=== PATIENT | female | born 1985 | race African-American/Black ===

== ENCOUNTER 2016-11-30 08:49 | Emergency (ER) | payer OTHER ==
[2016-11-30 09:13] VITALS: BMI 21.1
--- NOTE | 2016-11-30 10:49 | PDOC ---
History of Present Illness - General History Source: Patient Exam Limitations: No Limitations - History of Present Illness Initial Comments: 11/30/16 11:03 The patient is a 31 year old female, with no significant past medical history who presents to the emergency department with right sided flank pain, chills, body aches, weakness and fever of 102 degrees for about 3 days. Patient notes taking motrin for her fever with no significant alleviation of her symptoms. The patient ranks her pain a 9/10 in pain intensity. She denies any sore throat or runny nose. She reports mild nausea and nasal congestion. She reports feeling dehydrated and notes having foul smelling urine for the past week. LMP was last week and regular. She denies chest pain and shortness of breath. She denies headache. She denies, vomit and constipation. She denies dysuria, frequency, urgency and hematuria. Allergies: Iodine Past surgical history: None Social history:Nonsmoker. Denies EtOH and drug use. PCP: <Robbi Ladd - Last Filed: 11/30/16 11:03> - General History Source: Patient Exam Limitations: No Limitations <Jose Enrique Cox - Last Filed: 11/30/16 21:37> - General Chief Complaint: Pain, Acute Stated Complaint: RT SIDE PAIN, WEAKNESS, FEVER Time Seen by Provider: 11/30/16 10:48 Past History <Robbi Ladd - Last Filed: 11/30/16 11:03> - Past Medical History Asthma: Yes Cancer: No Cardiac Disorders: No Diabetes: No HTN: No Suicide Attempt (Hx): No Seizures: No Thyroid Disease: No - Reproductive History (#): 11 Para: 2 Therapeutic (s) & number: Yes (4) Spontaneous : 0 - Psycho/Social/Smoking Cessation Hx Anxiety: No Suicidal Ideation: No Smoking Status: No Smoking History: Never smoked Have you smoked in the past 12 months: No Number of Cigarettes Smoked Daily: 0 Hx Alcohol Use: No Drug/Substance Use Hx: No Substance Use Type: None Hx Substance Use Treatment: No <Jose Enrique Cox - Last Filed: 11/30/16 21:37> - Past Medical History Allergies/Adverse Reactions: Allergies Allergy/AdvReac Type Severity Reaction Status Date / Time iodine [Iodine] Allergy Hives Verified 11/30/16 09:06 Home Medications: Ambulatory Orders Albuterol Sulfate Inhaler - [Ventolin HFA Inhaler -] 2 sprays PO PRN PRN Levofloxacin [Levaquin] 750 mg PO DAILY #5 tablet 11/30/16 Review of Systems - Review of Systems Able to Perform ROS?: Yes Comments:: 11/30/16 11:03 CONSTITUTIONAL: Reported: fever and weakness.Chills, body aches No reported: Diaphoresis, Loss of Appetite HEENT: No reported: Rhinorrhea, Nasal Congestion, Throat Pain, Throat Swelling, Difficulty Swallowing, Mouth Swelling, Ear Pain, Eye Pain, Visual Changes CARDIOVASCULAR: No reported: Chest Pain, Syncope, Palpitations, Irregular Heart Rate, Lightheadedness, Peripheral Edema RESPIRATORY: No reported: Cough, Shortness of Breath, SOB with Exertion, Orthopnea, Wheezing , Stridor, Hemoptysis GASTROINTESTINAL: No reported: Vomiting, Diarrhea, Constipation, Melena, Hematochezia GENITOURINARY: Reported: right flank pain. No reported: Dysuria, Frequency, Urgency, Hesitancy , Genital Pain MUSCULOSKELETAL: No reported: Myalgia, Arthralgia, Joint Swelling, Back pain, Neck Pain SKIN: No reported: Rash, Itching, Pallor HEMEATOLOGIC/IMMUNOLOGIC: No reported: Easy Bleeding, Easy Bruising, Lymphadenopathy, Frequent infections ENDOCRINE: No reported: Unexplained Weight Gain, Unexplained Weight Loss, Heat Intolerance , Cold Intolerance NEUROLOGIC: No reported: Headache, Focal Weakness, Paresthesias, Vertigo, Lightheadedness, Unsteady Gait, Seizure, Mental Status Changes, Incontinence PSYCHIATRIC: No reported: Anxiety, Depression <Robbi Ladd - Last Filed: 11/30/16 11:03> *Physical Exam - Vital Signs Last Vital Signs Temp Pulse Resp BP Pulse Ox 101.4 F H 114 H 18 93/57 96 11/30/16 09:07 11/30/16 09:07 11/30/16 09:07 11/30/16 09:07 11/30/16 09:07 - Physical Exam Comments: 11/30/16 11:03 GENERAL: The patient is awake, alert, and fully oriented, Nontoxic. HEAD: Normocephalic, atraumatic. EYES: extraocular movements intact, sclera anicteric, conjunctiva clear. ENT: Normal voice, Moist mucous membranes. NECK: Normal range of motion, supple LUNGS: Breath sounds equal, clear to auscultation bilaterally. No wheezes, no rhonchi, no rales. HEART: Regular rate and rhythm, without murmur, rub or gallop. ABDOMEN: Mild right CVA tenderness and mild right abdominal tenderness. Soft, normoactive bowel sounds. No guarding, no rebound.No CVA tenderness EXTREMITIES: Normal range of motion, no edema. No clubbing or cyanosis. No cords , erythema, or tenderness. NEUROLOGICAL: No facial asymmetry, Normal speech. PSYCH: Normal mood, normal affect. SKIN: Warm, Dry, normal turgor. <Robbi Ladd - Last Filed: 11/30/16 11:03> - Vital Signs Last Vital Signs Temp Pulse Resp BP Pulse Ox 101.4 F H 114 H 18 93/57 96 11/30/16 09:07 11/30/16 09:07 11/30/16 09:07 11/30/16 09:07 11/30/16 09:07 <Jose Enrique Cox - Last Filed: 11/30/16 21:37> ED Treatment Course - LABORATORY CBC & Chemistry Diagram: 11/30/16 11:11 11/30/16 11:11 <Jose Enrique Cox - Last Filed: 11/30/16 21:37> Medical Decision Making - Medical Decision Making 11/30/16 10:59 31y F no pmhx presents with R sided abd pain, fever/chills, body aches, foul smelling urine. On exam pt noted with r sided flank tenderness, noted febrile and tachycardic - suspect possible pyelonephritis will ck ua, cbc, cmp will give fluids, zofran, small dose of morphine will r/o A portion of this note was documented by scribe services under my direction. I have reviewed the details of the note, within reason, and agree with the documentation with the following case summary and management plan written by me 11/30/16 14:06 lbs reviewed noted for leukocytosis ua c/w ua - likely pyelo pt given dose of levaquin pt feeling improved will d/c pt to fu with her PMD return precuations were discussed I discussed the physical exam findings, ancillary test results and final diagnoses with the patient. I answered all of the patient's questions. The patient was satisfied with the care received and felt comfortable with the discharge plan and treatment plan. The patient will call their primary care physician within 24 hours to arrange follow-up and will return to the Emergency Department with any new, persistent or worsening symptoms. <Jose Enrique Cox - Last Filed: 11/30/16 21:37> *DC/Admit/Observation/Transfer - Attestations Scribe Attestion: 11/30/16 11:00 Documentation prepared by Robbi Ladd, acting as medical transport specialist for Jose Enrique Cox MD. <Robbi Ladd - Last Filed: 11/30/16 11:03> - Discharge Dispostion Admit: No <Jose Enrique Cox - Last Filed: 11/30/16 21:37> Diagnosis at time of Disposition: Pyelonephritis - Discharge Dispostion Disposition: HOME Condition at time of disposition: Improved - Prescriptions Prescriptions: Levofloxacin [Levaquin] 750 mg PO DAILY #5 tablet - Referrals Referrals: Donell Hector MD [Primary Care Provider] - - Patient Instructions Printed Discharge Instructions: DI for Kidney Infection Additional Instructions: Return to the emergency department immediately with ANY new, persistent or worsening symptoms including persistent fevers, worsening back pain, inability to tolerate oral intake or other concerns. You MUST call and follow up with your doctor tomorrow for further evaluation of your symptoms. Results were discussed with you. Please make sure your doctor reviews the results of your emergency evaluation. Print Language: SLOVENIAN - Post Discharge Activity Work/School Note: Back to Work
[2016-11-30] MEDS ORDERED: SODIUM CHLORIDE 1,000 ML IV ONE ×2 (10:58→13:22)
[2016-11-30] MEDS ORDERED: ONDANSETRON 4 MG/2 ML VIAL IVPB ONE (10:58)
[2016-11-30] MEDS ORDERED: ACETAMINOPHEN 500 MG TABLET (FP) PO ONE (11:13)
[2016-11-30] MEDS ORDERED: ACETAMINOPHEN 325 MG TABLET (FP) ONE (11:17)
[2016-11-30] MEDS ORDERED: ONDANSETRON 4 MG/2 ML VIAL ONE (11:17)
[2016-11-30 11:22] LABS: BASOPHIL 0.4 % (0-2.0); MCH 30.1 pg (25.7-33.7); MCHC 33.2 g/dl (32.0-36.0); MEAN CELL VOLUME 90.8 fl (80-96); MEAN PLT VOLUME 9.1 fl (7.5-11.1); NEUTROPHILS 79.8 % (42.8-82.8); PLATELET COUNT 194 K/MM3 (134-434); RDW 13.6 % (11.6-15.6)
[2016-11-30 11:29] LABS: URINE APPEARANCE SLCLOUDY; URINE BILIRUBIN NEGATIVE (NEGATIVE); URINE BLOOD NEGATIVE (NEGATIVE); URINE COLOR DKYELLOW; URINE GLUCOSE (UA) NEGATIVE (NEGATIVE); URINE KETONE 1+ (NEGATIVE); URINE LEUK ESTERASE NEGATIVE (NEGATIVE); URINE NITRITE POSITIVE (NEGATIVE); URINE UROBILINOGEN NEGATIVE E.U./dl (0.2-1.0)
[2016-11-30 11:32] LABS: URINE PROTEIN 1+ (NEGATIVE)
[2016-11-30 11:34] LABS: URINE BACTERIA MANY /hpf (NONE SEEN); URINE MUCUS MANY; URINE RBC 4 /hpf (0-3); URINE WBC 9 /hpf (3-5)
[2016-11-30 11:36] LABS: ALBUMIN 4.2 g/dl (3.4-5.0); ALK PHOS 62 U/L (45-117); ANION GAP 8 (8-16); BILIRUBIN,TOTAL 1.1 mg/dL (0.2-1.0); CO2 27 mmol/L (21-32); CREATININE 0.9 mg/dL (0.55-1.02); GLUCOSE,RANDOM 95 mg/dL (74-106); SGOT/AST 10 U/L (15-37); SGPT/ALT 16 U/L (12-78); TOT PROT 8.2 g/dl (6.4-8.2)
[2016-11-30] MEDS ORDERED: LEVOFLOXACIN 750 MG IVPB 150 ML IVPB ONE (12:38)
[2016-11-30] MEDS ORDERED: KETOROLAC TROMETHAMINE 30 MG/1 ML VIAL IVPUSH ONE (12:39)
[2016-11-30] MEDS ORDERED: KETOROLAC TROMETHAMINE 30 MG/1 ML VIAL ONE (13:06)
[2016-11-30] MEDS ORDERED: LEVOFLOXACIN 250 MG IVPB 50 ML IVPB ONE (13:07)
[2016-11-30] MEDS ORDERED: LEVOFLOXACIN 500 MG IVPB 100 ML IVPB ONE (13:07)
[2016-11-30 13:25] VITALS: BP 112/59; PULSE 93; TEMP 98.4
[2016-11-30] MEDS ORDERED: POTASSIUM CHLORIDE TABS 20 MEQ TABLET.ER (FP) PO ONE ×2 (14:08→14:16)
== END 2016-11-30 14:44 | disposition home or self-care (01) ==
LOC: JER 08:49
PROC: 3E03329 Introduction of Other Anti-infective into Peripheral Vein, Percutaneous Approach (ICD-10-PCS; principal; 2016-11-30)
PROC: 3E033GC Introduction of Other Therapeutic Substance into Peripheral Vein, Percutaneous Approach (ICD-10-PCS; 2016-11-30)
PROC: 3E0337Z Introduction of Electrolytic and Water Balance Substance into Peripheral Vein, Percutaneous Approach (ICD-10-PCS; 2016-11-30)
DX: N12 Tubulo-interstitial nephritis, not specified as acute or chronic (principal)
CPT/HCPCS: 36415; 80053; 81003; 81015; 84703; 85025; 87086; 87186; 99284-25

== ENCOUNTER 2017-09-22 13:45 | Emergency (ER) | payer OTHER ==
[2017-09-22 13:53] VITALS: BP 108/57; PULSE 96; TEMP 98.8; BMI 21.1
[2017-09-22] MEDS ORDERED: FAMOTIDINE 20 MG TABLET PO ONE (14:04)
--- NOTE | 2017-09-22 14:04 | PDOC ---
History of Present Illness - General Chief Complaint: Allergic Reaction Stated Complaint: ALLERGIC REACTION Time Seen by Provider: 09/22/17 14:02 - History of Present Illness Initial Comments: 09/22/17 14:20 Chief complaint: ALLERGIC reaction History of present illness: After eating fish that was supposedly prepared with iodine salt, the patient experienced itching without hives, irritation and the sensation of swelling in her throat, and chest tightness with wheezing. She has had similar reactions in the past to iodine in radiological contrast procedure and also foods. She is prescribed an EpiPen but did not have it with her today. She took 2 Benadryl by mouth, used an albuterol pump, and took an albuterol nebulizer treatment. Her symptoms gradually subsided. At present, she has only mild irritation in the throat. There was never any stridor or shortness of breath. Review of systems: Denies fever/chills, chest pain, shortness of breath, abdominal pain, nausea, vomiting, diarrhea, urinary tract symptoms, vaginal bleeding or discharge. Her last menses was 2 months ago. She is usually regular. She is not sexually active Past medical history: Asthma since childhood, ALLERGIC reactions with urticaria as noted above. 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, no tobacco alcohol or nonprescription drugs, fully active and without disability Family history: Reviewed and negative including ALLERGIC diseases, skin diseases , early coronary artery disease, metabolic diseases including diabetes, and cancer Physical exam: Alert and oriented well-developed well-nourished no acute distress cheerful and cooperative complaining only of slight irritation in the throat Afebrile, vital signs normal with normal respiratory rate and oxygen saturation PERRLA, fundi benign, ENT clear, with only slight edema of the uvula and no other edema or swelling of the oropharynx, lips, or face Neck supple without bruit mass or nodes Chest clear with full breath sounds throughout bilaterally, no wheezes rales or rhonchi CV S1 and S2 normal without murmur rub or gallop pulses full and symmetric no JVD or edema Abdomen nondistended, normal bowel sounds. Soft without mass tenderness or organomegaly Neurological C2 to 12 intact. Strength full and symmetric. No focal sensory or motor deficits. Gait stable and unimpaired Skin clear, no rash including urticaria, good turgor and wet mucous membranes Extremities no CCE Impression: ALLERGIC reaction, partially treated with Benadryl, resolving. Plan: Continued treatment and observation. Past History - Past Medical History Allergies/Adverse Reactions: Allergies Allergy/AdvReac Type Severity Reaction Status Date / Time iodine [Iodine] Allergy Hives Verified 11/30/16 09:06 Home Medications: Ambulatory Orders Albuterol Sulfate Inhaler - [Ventolin HFA Inhaler -] 2 sprays PO PRN PRN Albuterol 0.083% Nebulizer Oly [Ventolin 0.083%] 1 neb NEB QID PRN 09/22/17 Asthma: Yes Cancer: No Cardiac Disorders: No Diabetes: No HTN: No Seizures: No Thyroid Disease: No - Reproductive History (#): 11 Para: 2 Therapeutic (s) & number: Yes (4) Spontaneous : 0 - Suicide/Smoking/Psychosocial Hx Smoking Status: No Smoking History: Never smoked Have you smoked in the past 12 months: No Number of Cigarettes Smoked Daily: 0 Hx Alcohol Use: No Drug/Substance Use Hx: No Substance Use Type: None Hx Substance Use Treatment: No *Physical Exam - Vital Signs Last Vital Signs Temp Pulse Resp BP Pulse Ox 98.8 F 96 H 18 108/57 100 09/22/17 13:45 09/22/17 13:45 09/22/17 13:45 09/22/17 13:45 09/22/17 13:45 Medical Decision Making - Medical Decision Making 09/22/17 14:42 Symptoms have completely resolved. The throat is clear. Edema of the uvula is no longer evident. Lungs are clear with full breath sounds bilaterally. Abdomen is soft and nontender. There is no itching and there are no urticaria visible or palpable EpiPen is refilled and its use was reviewed with the patient. She has Benadryl and albuterol at home. She will follow up with her primary physician. Return to the hospital immediately if there are any further symptoms. *DC/Admit/Observation/Transfer Diagnosis at time of Disposition: Allergic reaction Qualifiers: Encounter type: initial encounter Qualified Code(s): T78.40XA - Allergy, unspecified, initial encounter; T78.40XA - Allergy, unspecified, initial encounter - Discharge Dispostion Disposition: HOME Condition at time of disposition: Improved Admit: No - Patient Instructions Printed Discharge Instructions: DI for Adverse Drug Reaction -- Allergic - Post Discharge Activity Forms/Work/School Notes: Back to Work
[2017-09-22] MEDS ORDERED: FAMOTIDINE 20 MG TABLET ONE (14:06)
== END 2017-09-22 15:12 | disposition home or self-care (01) ==
LOC: FER 13:45
PROC: 3E023GC Introduction of Other Therapeutic Substance into Muscle, Percutaneous Approach (ICD-10-PCS; principal; 2017-09-22)
DX: T78.40XA Allergy, unspecified, initial encounter (principal); X58.XXXA Exposure to other specified factors, initial encounter; Y93.9 Activity, unspecified; Y92.9 Unspecified place or not applicable
CPT/HCPCS: 99283-25

== ENCOUNTER 2017-11-28 17:53 | Emergency (ER) | payer OTHER ==
[2017-11-28 18:16] VITALS: BMI 22.4
[2017-11-28] MEDS ORDERED: SODIUM CHLORIDE 1,000 ML IV STA (18:16)
--- NOTE | 2017-11-28 18:16 | PDOC ---
Rapid Medical Evaluation Medical Evaluation: Allergies Allergy/AdvReac Type Severity Reaction Status Date / Time iodine [Iodine] Allergy Hives Verified 11/30/16 09:06 11/28/17 18:12 I have performed a brief in-person evaluation of this patient. The patient presents with a chief complaint of: N/v and syncope s/p eating a "weed" brownie 1/2 hr ago, provided by a friend. Also c/o anxiety and SI Pertinent physical exam findings:appears uncomfortable and actively vomiting at triage w/ tachycardia to 130 I have ordered the following:cbc/chem/ua/utox/IVF/zofran The patient will proceed to the ED for further evaluation. 11/28/17 18:17
[2017-11-28] MEDS ORDERED: ONDANSETRON 4 MG/2 ML VIAL IVPUSH ONE (18:17)
[2017-11-28] MEDS ORDERED: ONDANSETRON 4 MG/2 ML VIAL ONE (18:33)
[2017-11-28 18:48] LABS: BASO % 0.4 % (0-2.0); EOS % 0.6 % (0-4.5); HEMATOCRIT 36.3 % (32.4-45.2); HEMOGLOBIN 12.2 GM/dL (10.7-15.3); LYMPH % 52.7 % (8-40); MCH 30.2 pg (25.7-33.7); MCHC 33.7 g/dl (32.0-36.0); MEAN CELL VOLUME 89.5 fl (80-96); MEAN PLT VOLUME 8.5 fl (7.5-11.1); MONO % 5.8 % (3.8-10.2); NEUT % 40.5 % (42.8-82.8); PLATELET COUNT 226 K/MM3 (134-434); RBC 4.06 M/mm3 (3.60-5.2); RDW 13.8 % (11.6-15.6); WHITE BLOOD COUNT 7.4 K/mm3 (4.0-10.0)
[2017-11-28 19:04] LABS: URINE APPEARANCE SLCLOUDY; URINE BILIRUBIN NEGATIVE (NEGATIVE); URINE BLOOD NEGATIVE (NEGATIVE); URINE COLOR YELLOW; URINE GLUCOSE (UA) NEGATIVE (NEGATIVE); URINE KETONE NEGATIVE (NEGATIVE); URINE LEUK ESTERASE NEGATIVE (NEGATIVE); URINE NITRITE NEGATIVE (NEGATIVE); URINE PROTEIN NEGATIVE (NEGATIVE); URINE UROBILINOGEN NEGATIVE mg/dL (0.2-1.0)
[2017-11-28 19:30] LABS: COCAINE, UR NEGATIVE ng/ml (CUTOFF=300); METHADONE, UR NEGATIVE ng/ml (CUTOFF=300); OPIATES, URI NEGATIVE ng/ml (CUTOFF=300); PHENCYCLIDINE,URINE NEGATIVE ng/ml (CUTOFF=25); URINE AMPHETAMINES NEGATIVE ng/ml (CUTOFF=500); URINE BARBITURATES NEGATIVE ng/ml (CUTOFF=200); URINE BENZODIAZEPINES NEGATIVE ng/ml (CUTOFF=200)
[2017-11-28 20:03] LABS: ALBUMIN 3.4 g/dl (3.4-5.0); ANION GAP 6 (8-16); BLOOD UREA NITROGEN 14 mg/dL (7-18); CALCIUM 7.5 mg/dL (8.5-10.1); CHLORIDE 112 mmol/L (98-107); CO2 24 mmol/L (21-32); GLUCOSE,RANDOM 104 mg/dL (74-106); POTASSIUM 3.6 mmol/L (3.5-5.1); SODIUM 142 mmol/L (136-145)
[2017-11-28 20:07] LABS: ALK PHOS 39 U/L (45-117); BILIRUBIN,TOTAL 0.5 mg/dL (0.2-1.0); CREATININE 0.6 mg/dL (0.55-1.02); SGOT/AST 9 U/L (15-37); SGPT/ALT 16 U/L (12-78); TOT PROT 6.3 g/dl (6.4-8.2)
--- NOTE | 2017-11-28 20:29 | PDOC ---
History of Present Illness <Cammie Currie Jihan - Last Filed: 11/28/17 23:26> - General History Source: Patient Exam Limitations: No Limitations - History of Present Illness Initial Comments: 11/28/17 23:43 The patient is a 32 year old female with no significant past medical history who presents to the ED complaining of nausea, vomiting, and lightheadedness that began approximately half an hour eating a "weed brownie". She states her mother gave her the brownie. She denies any other illicit drug use. She felt anxious and came to the ED. No abdominal pain, constipation, or diarrhea. No fever or chills. <Betina Cummins - Last Filed: 11/28/17 23:55> - General Chief Complaint: Psychiatric Stated Complaint: SUBSTANCE ABUSE Time Seen by Provider: 11/28/17 19:13 Past History - Past Medical History Asthma: Yes Cancer: No Cardiac Disorders: No COPD: No Diabetes: No HTN: No Seizures: No Thyroid Disease: No - Reproductive History (#): 11 Para: 2 Therapeutic (s) & number: Yes (4) Spontaneous : 0 - Suicide/Smoking/Psychosocial Hx Smoking Status: No Smoking History: Never smoked Have you smoked in the past 12 months: No Number of Cigarettes Smoked Daily: 0 Information on smoking cessation initiated: No Hx Alcohol Use: No Drug/Substance Use Hx: No Substance Use Type: None Hx Substance Use Treatment: No <Cammie Currie Jihan - Last Filed: 11/28/17 23:26> <Betina Cummins - Last Filed: 11/28/17 23:55> - Past Medical History Allergies/Adverse Reactions: Allergies Allergy/AdvReac Type Severity Reaction Status Date / Time iodine [Iodine] Allergy Hives Verified 11/28/17 18:17 Home Medications: Ambulatory Orders Albuterol Sulfate Inhaler - [Ventolin HFA Inhaler -] 2 sprays PO PRN PRN Albuterol 0.083% Nebulizer Oly [Ventolin 0.083% Nebulizer Soln -] 1 neb NEB QID PRN 09/22/17 Epinephrine [Epipen] 0.3 mg IJ PRN PRN #1 auto.injct 09/22/17 Review of Systems - Review of Systems Able to Perform ROS?: Yes Comments:: 11/28/17 23:45 CONSTITUTIONAL: Absent: fever, chills, diaphoresis, generalized weakness, malaise, loss of appetite HEENT: Absent: rhinorrhea, nasal congestion, throat pain, throat swelling, difficulty swallowing, mouth swelling, ear pain, eye pain, visual Changes CARDIOVASCULAR: Absent: chest pain, syncope, palpitations, irregular heart rate, lightheadedness , peripheral edema RESPIRATORY: Absent: cough, shortness of breath, dyspnea with exertion, orthopnea, wheezing, stridor, hemoptysis GASTROINTESTINAL: Present: nausea, vomiting Absent: abdominal pain, abdominal distension, diarrhea, constipation, melena, hematochezia GENITOURINARY: Absent: dysuria, frequency, urgency, hesitancy, hematuria, flank pain, genital pain MUSCULOSKELETAL: Absent: myalgia, arthralgia, joint swelling SKIN: Absent: rash, itching, pallor HEMATOLOGIC/IMMUNOLOGIC: Absent: easy bleeding, easy bruising, lymphadenopathy, frequent infections ENDOCRINE: Absent: unexplained weight gain, unexplained weight loss, heat intolerance, cold intolerance NEUROLOGIC: Absent: headache, focal weakness or paresthesias, dizziness, unsteady gait, seizure, mental status changes, bladder or bowel incontinence PSYCHIATRIC: Present: anxiety Absent: depression, suicidal or homicidal ideation, hallucinations. <Betina Cummins - Last Filed: 11/28/17 23:55> *Physical Exam - Vital Signs Last Vital Signs Temp Pulse Resp BP Pulse Ox 97.6 F 130 H 22 122/68 100 11/28/17 18:12 11/28/17 18:12 11/28/17 18:12 11/28/17 18:12 11/28/17 18:12 <Cammie Currie - Last Filed: 11/28/17 23:26> - Vital Signs Last Vital Signs Temp Pulse Resp BP Pulse Ox 97.6 F 130 H 22 122/68 100 11/28/17 18:12 11/28/17 18:12 11/28/17 18:12 11/28/17 18:12 11/28/17 18:12 - Physical Exam Comments: 11/28/17 23:53 GENERAL: Well developed, well nourished. Awake and alert. No acute distress. HEENT: Normocephalic, atraumatic. PERRLA, EOMI. No conjunctival pallor. Sclera are non- icteric. Moist mucous membranes. Oropharynx is clear. NECK: Supple. Full ROM. No JVD. Carotid pulses 2+ and symmetric, without bruits. No thyromegaly. No lymphadenopathy. CARDIOVASCULAR: Regular rate and rhythm. No murmurs, rubs, or gallops. Distal pulses are 2+ and symmetric. PULMONARY: No evidence of respiratory distress. Lungs clear to auscultation bilaterally. No wheezing, rales or rhonchi. ABDOMINAL: Soft. Non-tender. Non-distended. No rebound or guarding. No organomegaly. Normoactive bowel sounds. MUSCULOSKELETAL Normal range of motion at all joints. No bony deformities or tenderness. No CVA tenderness. EXTREMITIES: No cyanosis. No clubbing. No edema. No calf tenderness. SKIN: Warm and dry. Normal capillary refill. No rashes. No jaundice. NEUROLOGICAL: Alert, awake, appropriate. Cranial nerves 2-12 intact. No deficits to light touch and temperature in face, upper extremities and lower extremities. No motor deficits in the in face, upper extremities and lower extremities. Normoreflexic in the upper and lower extremities. Normal speech. Gait is normal without ataxia. PSYCHIATRIC: Cooperative. Good eye contact. Appropriate mood and affect. <Betina Cummins - Last Filed: 11/28/17 23:55> Heart Score/ECG Review #1 11/28/17 21:28 EKG obtained 20:44. Normal sinus rhythm at 99 bpm. Possible left atrial enlargement. Prolonged QT Abnormal EKG. <Betina Cummins - Last Filed: 11/28/17 23:55> ED Treatment Course - LABORATORY CBC & Chemistry Diagram: 11/28/17 18:40 11/28/17 19:20 - ADDITIONAL ORDERS Additional order review: Laboratory Results 11/28/17 11/28/17 11/28/17 19:20 19:20 18:50 Sodium 142 Potassium 3.6 Chloride 112 H D Carbon Dioxide 24 Anion Gap 6 L BUN 14 D Creatinine 0.6 D Creat Clearance w eGFR > 60 Random Glucose 104 Calcium 7.5 L Total Bilirubin 0.5 D AST 9 L ALT 16 Alkaline Phosphatase 39 L D Creatine Kinase 304 H Creatine Kinase Index 0.3 CK-MB (CK-2) < 1.000 Troponin I < 0.02 Total Protein 6.3 L D Albumin 3.4 Urine Color Urine Appearance Urine pH Ur Specific [place] Urine Protein Urine Glucose (UA) Urine Ketones Urine Blood Urine Nitrite Urine Bilirubin Urine Urobilinogen Opiates Screen Negative Methadone Screen Negative Barbiturate Screen Negative Phencyclidine Screen Negative Ur Amphetamines Screen Negative MDMA (Ecstasy) Screen Negative Benzodiazepines Screen Negative Cocaine Screen Negative U Marijuana (THC) Screen Positive 11/28/17 11/28/17 18:50 18:40 Sodium Cancelled Potassium Cancelled Chloride Cancelled Carbon Dioxide Cancelled Anion Gap Cancelled BUN Cancelled Creatinine Cancelled Creat Clearance w eGFR Cancelled Random Glucose Cancelled Calcium Cancelled Total Bilirubin Cancelled AST Cancelled ALT Cancelled Alkaline Phosphatase Cancelled Creatine Kinase Cancelled Creatine Kinase Index CK-MB (CK-2) Troponin I Cancelled Total Protein Cancelled Albumin Cancelled Urine Color Yellow Urine Appearance Slcloudy Urine pH 5.0 Ur Specific [place] 1.024 Urine Protein Negative Urine Glucose (UA) Negative Urine Ketones Negative Urine Blood Negative Urine Nitrite Negative Urine Bilirubin Negative Urine Urobilinogen Negative Opiates Screen Methadone Screen Barbiturate Screen Phencyclidine Screen Ur Amphetamines Screen MDMA (Ecstasy) Screen Benzodiazepines Screen Cocaine Screen U Marijuana (THC) Screen 11/28/17 18:40 RBC 4.06 MCV 89.5 MCHC 33.7 RDW 13.8 MPV 8.5 Neutrophils % 40.5 L D Lymphocytes % 52.7 H D Monocytes % 5.8 Eosinophils % 0.6 D Basophils % 0.4 - Medications Given in the ED: ED Medications Discontinued Medications Generic Name Dose Route Start Last Admin Trade Name Freq PRN Reason Stop Dose Admin Sodium Chloride 1,000 mls @ 1,000 mls/hr 11/28/17 18:16 11/28/17 18:51 Normal Saline - IV 11/28/17 19:15 1,000 mls/hr ASDIR STA Administration Ondansetron HCl 4 mg 11/28/17 18:17 11/28/17 18:42 Zofran Injection IVPUSH 11/28/17 18:18 4 mg ONCE ONE Administration <Cammie Currie - Last Filed: 11/28/17 23:26> - LABORATORY CBC & Chemistry Diagram: 11/28/17 18:40 11/28/17 19:20 - ADDITIONAL ORDERS Additional order review: Laboratory Results 01/12/1511/28/17 11/28/17 19:20 19:20 18:50 Sodium 142 Potassium 3.6 Chloride 112 H D Carbon Dioxide 24 Anion Gap 6 L BUN 14 D Creatinine 0.6 D Creat Clearance w eGFR > 60 Random Glucose 104 Calcium 7.5 L Total Bilirubin 0.5 D AST 9 L ALT 16 Alkaline Phosphatase 39 L D Creatine Kinase 304 H Creatine Kinase Index 0.3 CK-MB (CK-2) < 1.000 Troponin I < 0.02 Total Protein 6.3 L D Albumin 3.4 Urine Color Urine Appearance Urine pH Ur Specific [place] Urine Protein Urine Glucose (UA) Urine Ketones Urine Blood Urine Nitrite Urine Bilirubin Urine Urobilinogen Opiates Screen Negative Methadone Screen Negative Barbiturate Screen Negative Phencyclidine Screen Negative Ur Amphetamines Screen Negative MDMA (Ecstasy) Screen Negative Benzodiazepines Screen Negative Cocaine Screen Negative U Marijuana (THC) Screen Positive 11/28/17 11/28/17 18:50 18:40 Sodium Cancelled Potassium Cancelled Chloride Cancelled Carbon Dioxide Cancelled Anion Gap Cancelled BUN Cancelled Creatinine Cancelled Creat Clearance w eGFR Cancelled Random Glucose Cancelled Calcium Cancelled Total Bilirubin Cancelled AST Cancelled ALT Cancelled Alkaline Phosphatase Cancelled Creatine Kinase Cancelled Creatine Kinase Index CK-MB (CK-2) Troponin I Cancelled Total Protein Cancelled Albumin Cancelled Urine Color Yellow Urine Appearance Slcloudy Urine pH 5.0 Ur Specific [place] 1.024 Urine Protein Negative Urine Glucose (UA) Negative Urine Ketones Negative Urine Blood Negative Urine Nitrite Negative Urine Bilirubin Negative Urine Urobilinogen Negative Opiates Screen Methadone Screen Barbiturate Screen Phencyclidine Screen Ur Amphetamines Screen MDMA (Ecstasy) Screen Benzodiazepines Screen Cocaine Screen U Marijuana (THC) Screen 11/28/17 18:40 RBC 4.06 MCV 89.5 MCHC 33.7 RDW 13.8 MPV 8.5 Neutrophils % 40.5 L D Lymphocytes % 52.7 H D Monocytes % 5.8 Eosinophils % 0.6 D Basophils % 0.4 - Medications Given in the ED: ED Medications Discontinued Medications Generic Name Dose Route Start Last Admin Trade Name Freq PRN Reason Stop Dose Admin Sodium Chloride 1,000 mls @ 1,000 mls/hr 11/28/17 18:16 11/28/17 18:51 Normal Saline - IV 11/28/17 19:15 1,000 mls/hr ASDIR STA Administration Ondansetron HCl 4 mg 11/28/17 18:17 11/28/17 18:42 Zofran Injection IVPUSH 11/28/17 18:18 4 mg ONCE ONE Administration <Betina Cummins - Last Filed: 11/28/17 23:55> *DC/Admit/Observation/Transfer <Cammie Currie - Last Filed: 11/28/17 23:26> - Attestations Scribe Attestion: 11/28/17 23:55 Documentation prepared by Betina Cummins, acting as medical translator for Cammie Currie MD. <Betina Cummins - Last Filed: 11/28/17 23:55> Diagnosis at time of Disposition: Drug action, Tachycardia - Discharge Dispostion Disposition: HOME Condition at time of disposition: Stable - Referrals Referrals: Donell Hector MD [Primary Care Provider] - - Patient Instructions Printed Discharge Instructions: DI for Palpitations Additional Instructions: please avoid similar foods - Post Discharge Activity
[2017-11-28 23:40] VITALS: BP 112/68; PULSE 89; TEMP 98.5
--- NOTE | 2017-11-30 13:21 | EKG ---
Test Reason : Blood Pressure : / mmHG Vent. Rate : 099 BPM Atrial Rate : 099 BPM P-R Int : 122 ms QRS Dur : 090 ms QT Int : 378 ms P-R-T Axes : 076 085 049 degrees QTc Int : 485 ms NORMAL SINUS RHYTHM POSSIBLE LEFT ATRIAL ENLARGEMENT PROLONGED QT ABNORMAL ECG WHEN COMPARED WITH ECG OF 12-JUN-2011 19:29, NO SIGNIFICANT CHANGE WAS FOUND Confirmed by ANTHONY TOMAS MD ([id number]) on 11/30/2017 1:20:57 PM Referred By: Confirmed By:ANTHONY TOMAS MD
== END 2017-11-28 23:40 | disposition home or self-care (01) ==
LOC: JER 17:53
PROC: 3E0337Z Introduction of Electrolytic and Water Balance Substance into Peripheral Vein, Percutaneous Approach (ICD-10-PCS; principal; 2017-11-28)
PROC: 3E033GC Introduction of Other Therapeutic Substance into Peripheral Vein, Percutaneous Approach (ICD-10-PCS; 2017-11-28)
DX: T40.7X1A Poisoning by cannabis (derivatives), accidental (unintentional), initial encounter (principal); R11.2 Nausea with vomiting, unspecified; Y92.038 Other place in apartment as the place of occurrence of the external cause; F41.9 Anxiety disorder, unspecified
CPT/HCPCS: 36415; 80053; 80307; 81003; 82550; 82553; 84484; 85025; 93005; 93010; 99283-25

== ENCOUNTER 2018-02-22 08:12 | Emergency (ER) | payer OTHER ==
[2018-02-22 08:22] VITALS: BP 105/61; PULSE 86; TEMP 98.5; BMI 22.6
[2018-02-22] MEDS ORDERED: ALBUTEROL SO4 2.5/IPRATROPIUM 0.5 INH SOL 3 ML VIAL.NEB. NEB ONE ×2 (08:47→09:01)
--- NOTE | 2018-02-22 09:10 | PDOC ---
History of Present Illness - General Chief Complaint: Cold Symptoms Stated Complaint: Cold symptoms, sore throat, body aches Time Seen by Provider: 02/22/18 08:27 History Source: Patient, Parent(s) Exam Limitations: No Limitations - History of Present Illness Initial Comments: 02/22/18 09:01 She came for evaluation of body aches, fevers Tmax 101, runny nose, moist cough and headache pain. States is primarily frontal. States all of children had same illness a few days ago and were told was a cold. Has used [id number] medications and albuterol at home with minimal resolved Timing/Duration: reports: getting worse Severity: reports: mild, moderate Associated Symptoms: reports: chest pain/soreness, cough, dizziness, facial pain , fever/chills, headache, nasal drainage, sore throat, wheezing Past History - Travel Traveled outside of the country in the last 30 days: No Close contact w/someone who was outside of country & ill: No - Past Medical History Allergies/Adverse Reactions: Allergies Allergy/AdvReac Type Severity Reaction Status Date / Time iodine [Iodine] Allergy Hives Verified 02/22/18 08:21 Home Medications: Ambulatory Orders NK [No Known Home Medication] 02/22/18 Asthma: Yes Cancer: No Cardiac Disorders: No COPD: No Diabetes: No HTN: No Seizures: No Thyroid Disease: No - Reproductive History (#): 11 Para: 2 Therapeutic (s) & number: Yes (4) Spontaneous : 0 - Suicide/Smoking/Psychosocial Hx Smoking Status: No Smoking History: Never smoked Have you smoked in the past 12 months: No Number of Cigarettes Smoked Daily: 0 Information on smoking cessation initiated: No Hx Alcohol Use: No Drug/Substance Use Hx: No Substance Use Type: None Hx Substance Use Treatment: No Review of Systems - Review of Systems Able to Perform ROS?: Yes Is the patient limited R[place] proficient: Yes Constitutional: Yes: Symptoms Reported, See HPI, Chills, Fever, Malaise, Weakness HEENTM: Yes: Symptoms Reported, See HPI, Nose Congestion, Difficulty Swallowing Respiratory: Yes: Symptoms reported, See HPI, Cough, Wheezing Musculoskeletal: Yes: Symptoms Reported, See HPI, Back Pain All Other Systems: Reviewed and Negative *Physical Exam - Vital Signs Last Vital Signs Temp Pulse Resp BP Pulse Ox 98.5 F 86 18 105/61 100 02/22/18 08:19 02/22/18 08:19 02/22/18 08:19 02/22/18 08:19 02/22/18 08:19 - Physical Exam Comments: 02/22/18 09:03 GENERAL: [The child is awake, alert, and appropriately interactive.] EYES: [The pupils are equal, round, and reactive to light, with clear, conjunctiva.but glassy, has frontal ethmoid and maxillary sinus tenderness and fullness] NOSE: [The nose with clear drainage EARS: [The ear canals and tympanic membranes are congested but landmarks easily visualed ] THROAT: [The oropharynx is clear with erythema, no exudates. The mucous membranes are moist.] NECK: [The neck is supple with mildly tender adenopathy, no menigemous] CHEST: [The lungs are coarse but clear without crackles, or wheezes.] HEART: [Heart is regular rhythm, with normal S1 and S2, no murmurs.] ABDOMEN: [The abdomen is soft and nontender with normal bowel sounds. There is no organomegaly and no mass. There is no guarding or rebound.] EXTREMITIES: [Extremities are normal.] NEURO: [Behavior is normal for age.cranky but easily,m Tone is normal.] SKIN: [Skin is unremarkable without rash or swelling. There is no bruising, and there are no other signs of injury.] General Appearance: Yes: Nourished, Appropriately Dressed, Apparent Distress HEENT: positive: EOMI, KARLEY, Nasal Congestion, Rhinorrhea, Sinus Tenderness. negative: TMs Normal Neck: positive: Supple, Lymphadenopathy (R), Lymphadenopathy (L) Respiratory/Chest: positive: Normal Breath Sounds, Decreased Breath Sounds Extremity: positive: Normal Capillary Refill, Normal Inspection, Normal Range of Motion Integumentary: positive: Dry, Warm, Pale Neurologic: positive: dance entertainer II-XII NML intact, Fully Oriented, Alert, Normal Mood/ Affect, Normal Response, Motor Strength 5/5 Heart Score/ECG Review - ECG Impressions Normal ECG: Yes Non-specific ST Elevation: No Ischemic Changes: No Medical Decision Making - Medical Decision Making 02/22/18 11:56 Influenza test negative, we'll treat for common cold/viral syndrome conservatively. *DC/Admit/Observation/Transfer Diagnosis at time of Disposition: Upper respiratory infection, viral - Discharge Dispostion Disposition: HOME Condition at time of disposition: Stable Admit: No - Referrals Referrals: Benny Hector MD [Primary Care Provider] - - Patient Instructions Printed Discharge Instructions: DI for Common Cold Additional Instructions: Rest, drink lots of fluids: Teas, water, soups, Pedialyte Saltwater gargles Steamy showers/seem to face break up mucus Avoid contact with others until fevers and cough resolved Lots of handwashing and good hygiene Continue fdvr-nuc-gpxudia medications for symptomatic relief Tylenol or Motrin for fever and pain Continue albuterol nebulizers every 4-6 hours for the next 2 days then as needed for continued cough Followup with private physician in one to 2 days Return to emergency department / pediatric hospital for worsened symptoms, fevers, dehydration - Post Discharge Activity Forms/Work/School Notes: Back to Work
--- NOTE | 2018-02-22 10:50 | EKG ---
Test Reason : Blood Pressure : / mmHG Vent. Rate : 081 BPM Atrial Rate : 081 BPM P-R Int : 116 ms QRS Dur : 090 ms QT Int : 390 ms P-R-T Axes : 078 082 063 degrees QTc Int : 453 ms NORMAL SINUS RHYTHM WITH SINUS ARRHYTHMIA NORMAL ECG WHEN COMPARED WITH ECG OF 28-NOV-2017 20:44, NO SIGNIFICANT CHANGE WAS FOUND Confirmed by STACEY ENG, ZAC ([id number]) on 02/22/2018 10:50:21 AM Referred By: Confirmed By:ZAC IBARRA MD
== END 2018-02-22 09:36 | disposition home or self-care (01) ==
LOC: JERFT 08:12
PROC: 3E0F7GC Introduction of Other Therapeutic Substance into Respiratory Tract, Via Natural or Artificial Opening (ICD-10-PCS; principal; 2018-02-22)
DX: J06.9 Acute upper respiratory infection, unspecified (principal)
CPT/HCPCS: 87804; 93005; 93010; 99281-25

== ENCOUNTER 2019-01-14 18:37 | Emergency (ER) | payer OTHER ==
[2019-01-14 18:45] VITALS: BP 112/70; PULSE 80; TEMP 98; BMI 23.3
[2019-01-14] MEDS ORDERED: DIPHTH,PERTUSS(ACELL),TET 0.5 ML DISP.SYRIN IM ONE ×2 (19:23→19:30)
[2019-01-14] MEDS ORDERED: IBUPROFEN 400 MG TABLET (FP) PO ONE ×2 (19:24→19:29)
[2019-01-14] MEDS ORDERED: BACITRACIN 15 GM TUBE TOPICAL OINTMENT ONE (20:00)
--- NOTE | 2019-01-14 20:03 | PDOC ---
History of Present Illness - General Chief Complaint: Laceration Stated Complaint: LACERATION Time Seen by Provider: 01/14/19 19:23 History Source: Patient Exam Limitations: No Limitations (laceration to L forearm while placing tiles at home 11hrs ago ) Past History - Past Medical History Allergies/Adverse Reactions: Allergies Allergy/AdvReac Type Severity Reaction Status Date / Time iodine [Iodine] Allergy Hives Verified 01/14/19 18:42 Home Medications: Ambulatory Orders NK [No Known Home Medication] 02/22/18 Asthma: Yes Cancer: No Cardiac Disorders: No COPD: No Diabetes: No HTN: No Seizures: No Thyroid Disease: No - Reproductive History (#): 11 Para: 2 Therapeutic (s) & number: Yes (4) Spontaneous : 0 - Immunization History Immunization Up to Date: Yes - Suicide/Smoking/Psychosocial Hx Smoking Status: No Smoking History: Never smoked Have you smoked in the past 12 months: No Number of Cigarettes Smoked Daily: 0 Hx Alcohol Use: No Drug/Substance Use Hx: No Substance Use Type: None Hx Substance Use Treatment: No *Physical Exam - Vital Signs Last Vital Signs Temp Pulse Resp BP Pulse Ox 98 F 80 16 112/70 98 01/14/19 18:43 01/14/19 18:43 01/14/19 18:43 01/14/19 18:43 01/14/19 18:43 - Physical Exam General Appearance: Yes: Nourished Extremity: positive: Normal Capillary Refill, Normal Inspection, Other (2.5cm linear laceration noted in left forearm, no bleeding noted) Neurologic: positive: hourly associate II-XII NML intact, Fully Oriented, Alert Moderate Sedation - Procedure Monitoring Vital Signs: Procedure Monitoring Vital Signs Temperature 98 F 01/14/19 18:43 Pulse Rate 80 01/14/19 18:43 Respiratory Rate 16 01/14/19 18:43 Blood Pressure 112/70 01/14/19 18:43 O2 Sat by Pulse Oximetry (%) 98 01/14/19 18:43 Procedures - Laceration/Wound Repair Left Upper Arm Wound Length: to 2.5 cm Wound's Depth, Shape: superficial Irrigated w/ Saline: Yes Anesthesia: 2% Lidocaine Wound Repaired With: Sutures Suture Size/Type: 4:0 Number of Sutures: 6 Sterile Dressing Applied: Yes ED Treatment Course - Medications Given in the ED: ED Medications Discontinued Medications Generic Name Dose Route Start Last Admin Trade Name Thais PRN Reason Stop Dose Admin Diphtheria/Tetanus/Acell Pertussis 0.5 ml 01/14/19 19:23 01/14/19 19:33 Boostrix - IM 01/14/19 19:24 0.5 ml .ONCE ONE Administration Ibuprofen 800 mg 01/14/19 19:24 01/14/19 19:33 Motrin - PO 01/14/19 19:25 800 mg ONCE ONE Administration Medical Decision Making - Medical Decision Making 01/14/19 20:03 33y/o F R hand dominant with laceration to L forearm that occurred while using a brand new box turner to place tiles on the floor at home today Tetanus vaccines unknown lac repaired with 4.0 nylon, 6 stitches tetanus updated today, IM in Left deltoid 01/14/19 20:35 *DC/Admit/Observation/Transfer Diagnosis at time of Disposition: Laceration - Discharge Dispostion Disposition: HOME Condition at time of disposition: Stable Decision to Admit order: No - Referrals Referrals: Benny Hector MD [Primary Care Provider] - - Patient Instructions Printed Discharge Instructions: DI for Laceration Repair, DI for Suture Removal Additional Instructions: Pleas return to the emergency room for suture removal in 10 days for suture removal Keep area clean you return soon if redness and discharge occurs. Take tylenol or motrin for pain - Post Discharge Activity
== END 2019-01-14 20:10 | disposition home or self-care (01) ==
LOC: JERFT 18:37
PROC: 3E0234Z Introduction of Serum, Toxoid and Vaccine into Muscle, Percutaneous Approach (ICD-10-PCS; principal; 2019-01-14)
PROC: 0HQEXZZ Repair Left Lower Arm Skin, External Approach (ICD-10-PCS; 2019-01-14)
DX: S51.812A Laceration without foreign body of left forearm, initial encounter (principal); W26.8XXA Contact with other sharp object(s), not elsewhere classified, initial encounter; Y93.E9 Activity, other interior property and clothing maintenance; Y92.038 Other place in apartment as the place of occurrence of the external cause; Y99.8 Other external cause status
CPT/HCPCS: 90715; 99281-25

== ENCOUNTER 2019-04-17 16:43 | Emergency (ER) | payer OTHER ==
[2019-04-17 16:49] VITALS: BMI 23.3
--- NOTE | 2019-04-17 16:49 | PDOC ---
Rapid Medical Evaluation Chief Complaint: Pain Time Seen by Provider: 04/17/19 16:48 Medical Evaluation: Allergies Allergy/AdvReac Type Severity Reaction Status Date / Time iodine [Iodine] Allergy Hives Verified 01/14/19 18:42 04/17/19 16:48 I have performed a brief in-person evaluation of this patient. The patient presents with a chief complaint of: n/v/d abdominal pain Pertinent physical exam findings:stable and in NAD, non-focal I have ordered the following:labs, fluids, zofran The patient will proceed to the ED for further evaluation.
[2019-04-17] MEDS ORDERED: SODIUM CHLORIDE 1,000 ML IV STA (16:51)
[2019-04-17] MEDS ORDERED: ONDANSETRON 4 MG/2 ML VIAL IVPUSH ONE (16:52)
[2019-04-17] MEDS ORDERED: ONDANSETRON 4 MG/2 ML VIAL ONE (17:09)
[2019-04-17 17:23] LABS: BASO % 0.2 % (0-2.0); EOS % 0.9 % (0-4.5); HEMATOCRIT 39.2 % (32.4-45.2); HEMOGLOBIN 12.9 GM/dL (10.7-15.3); LYMPH % 17.4 % (8-40); MEAN CELL VOLUME 91.1 fl (80-96); MEAN PLT VOLUME 8.9 fl (7.5-11.1); MONO % 6.8 % (3.8-10.2); NEUT % 74.7 % (42.8-82.8); PLATELET COUNT 188 K/MM3 (134-434); RBC 4.31 M/mm3 (3.60-5.2); RDW 13.7 % (11.6-15.6); WHITE BLOOD COUNT 4.9 K/mm3 (4.0-10.0)
[2019-04-17 18:00] LABS: ALBUMIN 3.9 g/dl (3.4-5.0); BILIRUBIN,TOTAL 0.6 mg/dL (0.2-1); CALCIUM 8.6 mg/dL (8.5-10.1); CREATININE 0.6 mg/dL (0.55-1.3); POTASSIUM 4.3 mmol/L (3.5-5.1); TOT PROT 7.3 g/dl (6.4-8.2)
--- NOTE | 2019-04-17 18:01 | PDOC ---
History of Present Illness - General Chief Complaint: Pain Stated Complaint: DIARRHEA/FEVER Time Seen by Provider: 04/17/19 16:48 History Source: Patient - History of Present Illness Timing/Duration: reports: constant Quality: reports: moderate Abdominal Pain Onset Location: reports: other (lower abd) Past History - Past Medical History Allergies/Adverse Reactions: Allergies Allergy/AdvReac Type Severity Reaction Status Date / Time iodine [Iodine] Allergy Hives Verified 04/17/19 16:49 Home Medications: Ambulatory Orders NK [No Known Home Medication] 02/22/18 Asthma: Yes Cancer: No Cardiac Disorders: No COPD: No Diabetes: No HTN: No Seizures: No Thyroid Disease: No - Reproductive History (#): 11 Para: 2 Therapeutic (s) & number: Yes (4) Spontaneous : 0 - Immunization History Immunization Up to Date: Yes - Suicide/Smoking/Psychosocial Hx Smoking Status: No Smoking History: Never smoked Have you smoked in the past 12 months: No Number of Cigarettes Smoked Daily: 0 Information on smoking cessation initiated: No Hx Alcohol Use: No Drug/Substance Use Hx: No Substance Use Type: None Hx Substance Use Treatment: No Review of Systems - Review of Systems Constitutional: No: Chills, Fever ABD/GI: Yes: Diarrhea, Nausea, Vomiting, Abdominal cramping *Physical Exam - Vital Signs Last Vital Signs Temp Pulse Resp BP Pulse Ox 98.2 F 85 17 100/60 95 04/17/19 16:48 04/17/19 16:48 04/17/19 16:48 04/17/19 16:48 04/17/19 16:48 - Physical Exam General Appearance: Yes: Appropriately Dressed HEENT: positive: Normal Voice Gastrointestinal/Abdominal: positive: Normal Bowel Sounds, Tender (to periumbilicus, no ttp over mcburneys), Soft. negative: Flat, Organomegaly, Distended, Guarding, Rebound Integumentary: positive: Dry, Warm Neurologic: positive: Fully Oriented, Alert, Normal Mood/Affect ED Treatment Course - LABORATORY CBC & Chemistry Diagram: 04/17/19 17:03 04/17/19 17:03 - ADDITIONAL ORDERS Additional order review: 04/17/19 17:03 RBC 4.31 MCV 91.1 MCHC 33.0 RDW 13.7 MPV 8.9 Neutrophils % 74.7 D Lymphocytes % 17.4 D Monocytes % 6.8 Eosinophils % 0.9 Basophils % 0.2 - Medications Given in the ED: ED Medications Discontinued Medications Generic Name Dose Route Start Last Admin Trade Name Thais PRN Reason Stop Dose Admin Sodium Chloride 1,000 mls @ 1,000 mls/hr 04/17/19 16:51 04/17/19 17:12 Normal Saline - IV 04/17/19 17:50 1,000 mls/hr ASDIR STA Administration Ondansetron HCl 4 mg 04/17/19 16:52 04/17/19 17:14 Zofran Injection IVPUSH 04/17/19 16:53 4 mg ONCE ONE Administration Medical Decision Making - Medical Decision Making 04/17/19 17:57 33 yo F, no sig hx, here w/ n/v/d since yesterday. Also reports lower abd pain. No BRBRPR, f/c. Denies sick contacts, recent travel or abx use See exam Gastroenteritis vs appy -zofran -IVF -pain control -labs -CT given + periumbilical ttp (unable to get IV as allergic) 04/17/19 19:00 Pt signed out CARMELO Khoury pending CT 04/17/19 22:23 04/17/19 22:26 *DC/Admit/Observation/Transfer Diagnosis at time of Disposition: Gastroenteritis - Discharge Dispostion Disposition: HOME Condition at time of disposition: Stable - Referrals - Patient Instructions Printed Discharge Instructions: DI for Viral Gastroenteritis -- Adult Additional Instructions: Thank you for choosing [facility]. It was a pleasure taking care of you. Your labs and CT scan were normal Drink plenty of water to stay hydrated; be sure to get your electrolytes as well Eat light food like bananas, applesauce, toast, plain yogurt, rice until feeling better Follow-up with your doctor in 1 week Return to the Emergency Department if your symptoms worsen or persist, you have fever, bloody stools, unable to keep down water or other concerning symptoms. - Post Discharge Activity Forms/Work/School Notes: Back to Work
--- NOTE | 2019-04-17 21:38 | PDOC ---
*Physical Exam - Vital Signs Last Vital Signs Temp Pulse Resp BP Pulse Ox 98.2 F 85 17 100/60 95 04/17/19 16:48 04/17/19 16:48 04/17/19 16:48 04/17/19 16:48 04/17/19 16:48 ED Treatment Course - LABORATORY CBC & Chemistry Diagram: 04/17/19 17:03 04/17/19 17:03 - ADDITIONAL ORDERS Additional order review: Laboratory Results 04/17/19 04/17/19 17:03 17:03 Sodium 138 Potassium 4.3 Chloride 108 H Carbon Dioxide 25 Anion Gap 5 L BUN 9 Creatinine 0.6 Est GFR (CKD-EPI)AfAm 140.77 Est GFR (CKD-EPI)NonAf 121.46 Random Glucose 80 Calcium 8.6 Total Bilirubin 0.6 AST 23 ALT 21 Alkaline Phosphatase 62 Total Protein 7.3 Albumin 3.9 Serum , Qual Negative 04/17/19 17:03 RBC 4.31 MCV 91.1 MCHC 33.0 RDW 13.7 MPV 8.9 Neutrophils % 74.7 D Lymphocytes % 17.4 D Monocytes % 6.8 Eosinophils % 0.9 Basophils % 0.2 - Medications Given in the ED: ED Medications Discontinued Medications Generic Name Dose Route Start Last Admin Trade Name Freq PRN Reason Stop Dose Admin Sodium Chloride 1,000 mls @ 1,000 mls/hr 04/17/19 16:51 04/17/19 17:12 Normal Saline - IV 04/17/19 17:50 1,000 mls/hr ASDIR STA Administration Ondansetron HCl 4 mg 04/17/19 16:52 04/17/19 17:14 Zofran Injection IVPUSH 04/17/19 16:53 4 mg ONCE ONE Administration Medical Decision Making - Medical Decision Making Patient signed out to me by CARMELO Majano Patient resting in NAD; denies any complaints Labs unremarkable CT A/P with no acute findings Likely viral gastroenteritis Stable for dc 04/17/19 21:38 *DC/Admit/Observation/Transfer Diagnosis at time of Disposition: Gastroenteritis - Discharge Dispostion Disposition: HOME Condition at time of disposition: Stable Decision to Admit order: No - Referrals - Patient Instructions Printed Discharge Instructions: DI for Viral Gastroenteritis -- Adult Additional Instructions: Thank you for choosing [facility]. It was a pleasure taking care of you. Your labs and CT scan were normal Drink plenty of water to stay hydrated; be sure to get your electrolytes as well Eat light food like bananas, applesauce, toast, plain yogurt, rice until feeling better Follow-up with your doctor in 1 week Return to the Emergency Department if your symptoms worsen or persist, you have fever, bloody stools, unable to keep down water or other concerning symptoms. - Post Discharge Activity
[2019-04-17 21:49] VITALS: BP 112/62; PULSE 72; TEMP 98.4
== END 2019-04-17 21:55 | disposition home or self-care (01) ==
LOC: JER 16:43
PROC: 3E0337Z Introduction of Electrolytic and Water Balance Substance into Peripheral Vein, Percutaneous Approach (ICD-10-PCS; principal; 2019-04-17)
PROC: 3E033GC Introduction of Other Therapeutic Substance into Peripheral Vein, Percutaneous Approach (ICD-10-PCS; 2019-04-17)
DX: K52.9 Noninfective gastroenteritis and colitis, unspecified (principal)
CPT/HCPCS: 36415; 74176-TC; 80053; 84703; 85025; 99284-25; J7030

== ENCOUNTER 2021-05-14 15:04 | Emergency (ER) | payer OTHER ==
[2021-05-14 15:26] VITALS: BMI 24.6
[2021-05-14] MEDS ORDERED: morphine CARPU-JECT 4 MG/1 ML DISP.SYRIN IVPUSH ONE (15:56)
[2021-05-14] MEDS ORDERED: morphine SULFATE 4 MG/ML VIAL ONE (17:48)
[2021-05-14 18:07] LABS: BASO % 0.4 % (0-2.0); EOS % 0.7 % (0-4.5); HEMATOCRIT 36.9 % (32.4-45.2); HEMOGLOBIN 12.4 GM/dL (10.7-15.3); LYMPH % 39.2 % (8-40); MCH 30.1 pg (25.7-33.7); MCHC 33.5 g/dl (32.0-36.0); MEAN CELL VOLUME 89.9 fl (80-96); MEAN PLT VOLUME 8.6 fl (7.5-11.1); MONO % 5.7 % (3.8-10.2); PLATELET COUNT 219 10^3/uL (134-434); RBC 4.11 M/mm3 (3.60-5.2); RDW 13.4 % (11.6-15.6); WHITE BLOOD COUNT 6.7 K/mm3 (4.0-10.0)
[2021-05-14 18:11] LABS: PH,URINE 6.5 (5.0-8.0); URINE APPEARANCE CLEAR; URINE BILIRUBIN NEGATIVE (NEGATIVE); URINE COLOR YELLOW; URINE GLUCOSE (UA) NEGATIVE (NEGATIVE); URINE KETONE TRACE (NEGATIVE); URINE LEUK ESTERASE NEGATIVE (NEGATIVE); URINE NITRITE NEGATIVE (NEGATIVE); URINE PROTEIN NEGATIVE (NEGATIVE); URINE UROBILINOGEN 0.2 mg/dL (0.2-1.0)
[2021-05-14 18:15] LABS: HCG,QUALITATIVE URINE Negative
[2021-05-14 18:29] LABS: CHLORIDE 108 mmol/L (98-107); SODIUM 140 mmol/L (136-145)
[2021-05-14 18:31] LABS: CALCIUM 9.1 mg/dL (8.5-10.1)
[2021-05-14 18:32] LABS: ALBUMIN 4.4 g/dl (3.4-5.0); ANION GAP 6 MMOL/L (8-16); BLOOD UREA NITROGEN 9.3 mg/dL (7-18); CO2 26 mmol/L (21-32); GLUCOSE,RANDOM 80 mg/dL (74-106)
[2021-05-14 18:35] LABS: CREATININE 0.7 mg/dL (0.55-1.3); SGOT/AST 8 U/L (15-37); SGPT/ALT 20 U/L (13-61)
[2021-05-14 18:37] LABS: BILIRUBIN,TOTAL 0.6 mg/dL (0.2-1); TOT PROT 7.8 g/dl (6.4-8.2)
[2021-05-14 18:38] LABS: ALK PHOS 45 U/L (45-117)
[2021-05-14 18:57] VITALS: BP 112/72; PULSE 72; TEMP 98
== END 2021-05-14 20:41 | disposition home or self-care (01) ==
LOC: JER 15:04
PROC: 3E033NZ Introduction of Analgesics, Hypnotics, Sedatives into Peripheral Vein, Percutaneous Approach (ICD-10-PCS; principal; 2021-05-14)
DX: N93.9 Abnormal uterine and vaginal bleeding, unspecified (principal)
CPT/HCPCS: 36415; 76830-TC; 80053; 81003; 84702; 84703; 85025; 86850; 86900; 86901; 87086; 99284-25

== ENCOUNTER 2021-08-29 11:34 | Emergency (ER) | payer OTHER ==
[2021-08-29 12:08] VITALS: BP 105/46; PULSE 98; TEMP 98.5; BMI 23.3
[2021-08-29] MEDS ORDERED: ACETAMINOPHEN 325 MG TABLET (FP) PO ONE (13:05)
[2021-08-29] MEDS ORDERED: ACETAMINOPHEN 325 MG TABLET (FP) ONE (13:24)
[2021-08-29] MEDS ORDERED: ALBUTEROL SO4 HFA INHALER IH PRN (14:09)
[2021-08-29 15:06] LABS: URINE APPEARANCE CLEAR; URINE BILIRUBIN NEGATIVE (NEGATIVE); URINE COLOR YELLOW; URINE GLUCOSE (UA) NEGATIVE (NEGATIVE); URINE KETONE NEGATIVE (NEGATIVE); URINE LEUK ESTERASE NEGATIVE (NEGATIVE); URINE NITRITE NEGATIVE (NEGATIVE); URINE PROTEIN NEGATIVE (NEGATIVE)
[2021-08-29] MEDS ORDERED: ALBUTEROL SO4 HFA INHALER IH ONE (15:34)
== END 2021-08-29 16:06 | disposition home or self-care (01) ==
LOC: JER 11:34
DX: O26.891 Other specified pregnancy related conditions, first trimester (principal); R10.9 Unspecified abdominal pain; Z3A.01 Less than 8 weeks gestation of pregnancy
CPT/HCPCS: 76817-TC; 81003; 87086; 99284-25; C9803; U0003; U0005

== ENCOUNTER 2021-11-02 17:35 | Emergency (ER) | payer OTHER ==
[2021-11-02 17:40] VITALS: TEMP 98.2; BMI 25.7
[2021-11-02] MEDS ORDERED: ACETAMINOPHEN 1000 MG/100 ML VIAL IVPB ONE (19:55)
[2021-11-02] MEDS ORDERED: SODIUM CHLORIDE 0.9% 500 ML INFUS.BAG IV ONE (19:55)
[2021-11-02] MEDS ORDERED: ACETAMINOPHEN INJECTION 100 ML IVPB ONE (20:29)
[2021-11-02 20:50] LABS: BASO % 0.2 % (0-2.0); EOS % 0.8 % (0-4.5); HEMATOCRIT 31.4 % (32.4-45.2); LYMPH % 29.1 % (8-40); MEAN CELL VOLUME 88.5 fl (80-96); MEAN PLT VOLUME 8.2 fl (7.5-11.1); MONO % 8.2 % (3.8-10.2); NEUT % 61.7 % (42.8-82.8); PLATELET COUNT 212 10^3/uL (134-434); RBC 3.55 M/mm3 (3.60-5.2); RDW 13.7 % (11.6-15.6); WHITE BLOOD COUNT 4.2 K/mm3 (4.0-10.0)
[2021-11-02 20:51] LABS: EPI CELLS 4 /uL (0-25.1); HYALINE CASTS 3 /uL (0-3.1); URINE APPEARANCE CLOUDY; URINE BACTERIA 470 /uL (0-1359); URINE BILIRUBIN NEGATIVE (NEGATIVE); URINE COLOR YELLOW; URINE GLUCOSE (UA) NEGATIVE (NEGATIVE); URINE KETONE NEGATIVE (NEGATIVE); URINE LEUK ESTERASE 2+ (NEGATIVE); URINE NITRITE NEGATIVE (NEGATIVE); URINE PROTEIN TRACE (NEGATIVE); URINE RBC 37 /uL (0-23.9); URINE WBC 154 /uL (0-25.8)
[2021-11-02 21:04] LABS: ALBUMIN 3.2 g/dl (3.4-5.0); BLOOD UREA NITROGEN 7.3 mg/dL (7-18); CALCIUM 8.9 mg/dL (8.5-10.1)
[2021-11-02 21:07] LABS: CREATININE 0.5 mg/dL (0.55-1.3)
[2021-11-02 21:09] LABS: BILIRUBIN,TOTAL 0.3 mg/dL (0.2-1)
[2021-11-02 22:28] VITALS: BP 96/56; PULSE 88
== END 2021-11-02 23:04 | disposition home or self-care (01) ==
LOC: JER 17:35
PROC: 3E0333Z Introduction of Anti-inflammatory into Peripheral Vein, Percutaneous Approach (ICD-10-PCS; principal; 2021-11-02)
DX: R11.10 Vomiting, unspecified (principal); R19.7 Diarrhea, unspecified
CPT/HCPCS: 36415; 76815-TC; 80053; 81003; 85025; 87086; 99284-25; J0131

== ENCOUNTER 2021-11-05 09:27 | Emergency (ER) | payer OTHER ==
[2021-11-05 10:07] VITALS: TEMP 98.2; BMI 25.7
[2021-11-05] MEDS ORDERED: SODIUM CHLORIDE 1,000 ML IV STA (10:45)
[2021-11-05] MEDS ORDERED: CEFTRIAXONE 1,000 MG in DEXTROSE 5%-WATER - 50 ML IVPB ONE (10:46)
[2021-11-05] MEDS ORDERED: CEFTRIAXONE 1 GM/50 ML BAG ONE (11:09)
[2021-11-05] MEDS ORDERED: ACETAMINOPHEN 1000 MG/100 ML VIAL IVPB ONE (11:40)
[2021-11-05] MEDS ORDERED: ONDANSETRON 4 MG/2 ML VIAL IVPUSH ONE (11:40)
[2021-11-05 11:41] LABS: BASO % 0.2 % (0-2.0); EOS % 0.3 % (0-4.5); HEMATOCRIT 32.4 % (32.4-45.2); LYMPH % 16.4 % (8-40); MCH 30.5 pg (25.7-33.7); MCHC 34.1 g/dl (32.0-36.0); MEAN CELL VOLUME 89.6 fl (80-96); MEAN PLT VOLUME 8.4 fl (7.5-11.1); MONO % 5.4 % (3.8-10.2); NEUT % 77.7 % (42.8-82.8); PLATELET COUNT 214 10^3/uL (134-434); RBC 3.62 M/mm3 (3.60-5.2); RDW 13.7 % (11.6-15.6); WHITE BLOOD COUNT 6.4 K/mm3 (4.0-10.0)
[2021-11-05] MEDS ORDERED: ACETAMINOPHEN INJECTION 100 ML IVPB ONE (11:44)
[2021-11-05] MEDS ORDERED: ONDANSETRON 4 MG/2 ML VIAL ONE (11:45)
[2021-11-05 12:09] LABS: CALCIUM 8.7 mg/dL (8.5-10.1)
[2021-11-05 12:10] LABS: ALBUMIN 3.4 g/dl (3.4-5.0); BLOOD UREA NITROGEN 6.5 mg/dL (7-18)
[2021-11-05 12:13] LABS: CREATININE 0.4 mg/dL (0.55-1.3)
[2021-11-05 12:14] LABS: BILIRUBIN,TOTAL 0.3 mg/dL (0.2-1); TOT PROT 7.2 g/dl (6.4-8.2)
[2021-11-05 12:21] LABS: URINE APPEARANCE CLOUDY; URINE BILIRUBIN NEGATIVE (NEGATIVE); URINE COLOR YELLOW; URINE GLUCOSE (UA) NEGATIVE (NEGATIVE); URINE KETONE NEGATIVE (NEGATIVE)
[2021-11-05 12:22] LABS: EPI CELLS 10 /uL (0-25.1); HYALINE CASTS 1 /uL (0-3.1); URINE BACTERIA 221 /uL (0-1359); URINE LEUK ESTERASE NEGATIVE (NEGATIVE); URINE NITRITE NEGATIVE (NEGATIVE); URINE PROTEIN NEGATIVE (NEGATIVE); URINE RBC 568 /uL (0-23.9); URINE UROBILINOGEN 0.2 mg/dL (0.2-1.0); URINE WBC 10 /uL (0-25.8)
[2021-11-05 16:45] VITALS: BP 108/62; PULSE 80
== END 2021-11-05 16:45 | disposition home or self-care (01) ==
LOC: JER 09:27
PROC: 3E033GC Introduction of Other Therapeutic Substance into Peripheral Vein, Percutaneous Approach (ICD-10-PCS; principal; 2021-11-05)
DX: O23.592 Infection of other part of genital tract in pregnancy, second trimester (principal); Z3A.16 16 weeks gestation of pregnancy
CPT/HCPCS: 36415; 76775-TC; 76815-TC; 80053; 81003; 85025; 87086; 99284-25; J0131

== ENCOUNTER 2021-12-10 19:13 | Emergency (ER) | payer OTHER ==
[2021-12-10 19:49] VITALS: BP 118/64; PULSE 61; TEMP 98.1; BMI 25.9
[2021-12-12 13:08] LABS: SARS-CoV-2 NAA Detected (Not Detected)
== END 2021-12-10 21:31 | disposition home or self-care (01) ==
LOC: JER 19:13
DX: U07.1 COVID-19 (principal)
CPT/HCPCS: 99283-25; C9803; U0003; U0005

== ENCOUNTER 2022-04-13 12:40 | Inpatient (IN) | payer OTHER ==
[2022-04-13] MEDS ORDERED: BUTORPHANOL TARTRATE 2 MG/ML VIAL ONE (13:15)
[2022-04-13] MEDS ORDERED: PROMETHAZINE HCL 25 MG/1 ML VIAL ONE (13:15)
[2022-04-13] MEDS ORDERED: PROMETHAZINE HCL 25 MG/1 ML VIAL IVPUSH ONE (13:22)
[2022-04-13] MEDS ORDERED: BUTORPHANOL TARTRATE 1 MG/ML VIAL IVPUSH ONE (13:22)
[2022-04-13] MEDS ORDERED: ELECTROLYTE-148 SOLN 1,000 ML IV SCH (13:30)
[2022-04-13 13:45] VITALS: BMI 28.1
[2022-04-13 13:50] LABS: BASO % 0.2 % (0-2.0); EOS % 0.3 % (0-4.5); HEMATOCRIT 36.6 % (32.4-45.2); HEMOGLOBIN 12.2 GM/dL (10.7-15.3); LYMPH % 21.2 % (8-40); MCH 30.1 pg (25.7-33.7); MCHC 33.3 g/dl (32.0-36.0); MEAN CELL VOLUME 90.6 fl (80-96); MEAN PLT VOLUME 9.2 fl (7.5-11.1); MONO % 5.1 % (3.8-10.2); NEUT % 73.2 % (42.8-82.8); PLATELET COUNT 157 10^3/uL (134-434); RBC 4.04 M/mm3 (3.60-5.2); RDW 15.3 % (11.6-15.6); WHITE BLOOD COUNT 7.6 K/mm3 (4.0-10.0)
[2022-04-13 13:58] LABS: INR 0.94 (0.83-1.09); PROTHROMBIN TIME (PATIENT) 10.8 SEC (9.7-13.0)
[2022-04-13 14:01] LABS: ACTIVATED PTT 24.9 SECONDS (25.2-36.5); CALCIUM 8.9 mg/dL (8.5-10.1)
[2022-04-13 14:02] LABS: BLOOD UREA NITROGEN 5.4 mg/dL (7-18)
[2022-04-13 14:05] LABS: CREATININE 0.4 mg/dL (0.55-1.3)
[2022-04-13] MEDS ORDERED: OXYTOCIN 20 UNITS in 0.9% NS 20 UNIT/1,000 ML INFUS.BAG IV ONE (14:33)
[2022-04-13] MEDS ORDERED: WITCH HAZEL 50% (TUCKS) 40 PAD/JAR PAD TP PRN (16:49)
[2022-04-13] MEDS ORDERED: BISACODYL 10 MG SUPP.RECT RC PRN (16:49)
[2022-04-13] MEDS ORDERED: ACETAMINOPHEN 325 MG TABLET (FP) PO PRN (16:49)
[2022-04-13] MEDS ORDERED: METHYLERGONOVINE MALEATE 0.2 MG/1 ML AMP IM PRN (16:49)
[2022-04-13] MEDS ORDERED: BENZOCAINE 28 GM HEMORRHOIDAL OINTMENT TP PRN (16:49)
[2022-04-13] MEDS ORDERED: BENZOCAINE 20% 57 GM BOTTLE TP PRN (16:49)
[2022-04-13] MEDS ORDERED: OXYTOCIN 20 UNITS in 0.9% NS 20 UNIT/1,000 ML INFUS.BAG IV SCH (17:00)
[2022-04-13 17:03] LABS: CORD BASE EXCESS -3.5 mmol/L (0-2); CORD HCO3 22.9 mmHg (20-29); CORD PCO2 45.7 mmHg (30-78); CORD pH 7.317 (7.14-7.44)
[2022-04-13 17:06] LABS: CORD BASE EXCESS -6.1 mmol/L (0-2); CORD HCO3 22.2 mmHg (20-29); CORD pH 7.224 (7.14-7.44)
[2022-04-13] MEDS: IBUPROFEN 600 MG TABLET (FP) PO PRN (23:43)
[2022-04-14 07:25] LABS: BASO % 0.2 % (0-2.0); EOS % 0.3 % (0-4.5); HEMOGLOBIN 11.9 GM/dL (10.7-15.3); MCHC 34.1 g/dl (32.0-36.0); MEAN PLT VOLUME 9.7 fl (7.5-11.1); MONO % 7.2 % (3.8-10.2); NEUT % 65.3 % (42.8-82.8); PLATELET COUNT 146 10^3/uL (134-434); RBC 3.84 M/mm3 (3.60-5.2); RDW 15.3 % (11.6-15.6); WHITE BLOOD COUNT 9.6 K/mm3 (4.0-10.0)
[2022-04-14] MEDS: PRENATAL VITAMINS W/ FOLIC ACID TABLET (FP) PO SCH (09:32)
[2022-04-14] MEDS: IBUPROFEN 600 MG TABLET (FP) PO PRN (14:31)
[2022-04-14] MEDS ORDERED: SENNOSIDES/DOCUSATE COMBO (SENNA PLUS) TABLET (UD) PO PRN (22:00)
[2022-04-15] MEDS: PRENATAL VITAMINS W/ FOLIC ACID TABLET (FP) PO SCH (09:59)
[2022-04-15 12:04] VITALS: BP 108/68; PULSE 86; TEMP 98.3
== END 2022-04-15 13:05 | disposition home or self-care (01) | DRG 807 ==
LOC: JDEL 12:40 → JLDR 12:50 → J3W 20:57
PROVIDERS: ADMIT Obstetrics & Gynecology; ATTEND Obstetrics & Gynecology
PROC: 10E0XZZ Delivery of Products of Conception, External Approach (ICD-10-PCS; principal; 2022-04-13)
PROC: 0HQ9XZZ Repair Perineum Skin, External Approach (ICD-10-PCS; 2022-04-13)
DX: O70.0 First degree perineal laceration during delivery (principal); Z37.0 Single live birth; O69.2XX0 Labor and delivery complicated by other cord entanglement, with compression, not applicable or unspecified; Z3A.38 38 weeks gestation of pregnancy
CPT/HCPCS: 36415; 36600; 59409; 80048; 82803; 85025; 85610; 85730; 86780; 86850; 86900; 86901; C9803-CS; U0003; U0005

== ENCOUNTER 2022-06-08 04:27 | Day surgery (SDC) | payer OTHER ==
[2022-06-03 17:37] VITALS: BMI 25.1
[2022-06-08] MEDS ORDERED: PROPOFOL 20 ML ONE (07:17)
[2022-06-08] MEDS ORDERED: LIDOCAINE HCL/PF 2% SDV 5ML VIAL ONE (07:19)
[2022-06-08] MEDS ORDERED: SEVOFLURANE 250 ML BTL ONE (07:19)
[2022-06-08] MEDS ORDERED: ROCURONIUM BROMIDE 100 MG/10 ML VIAL ONE (07:19)
[2022-06-08] MEDS ORDERED: MIDAZOLAM HCL 2 MG/2 ML SINGLE DOSE VIAL ONE (07:21)
[2022-06-08] MEDS ORDERED: ALBUTEROL SO4 HFA INHALER IH ONE (07:22)
[2022-06-08] MEDS ORDERED: IBUPROFEN 600 MG TABLET (FP) PO PRN (07:23)
[2022-06-08] MEDS ORDERED: IBUPROFEN 800 MG/8 ML IJ IVPB PRN (07:23)
[2022-06-08] MEDS ORDERED: ONDANSETRON 4 MG/2 ML VIAL IVPUSH PRN (07:23)
[2022-06-08] MEDS ORDERED: oxyCODONE HCL 5 MG TABLET PO PRN (07:23)
[2022-06-08] MEDS ORDERED: ELECTROLYTE-148 SOLN 1,000 ML IV SCH (07:30)
[2022-06-08] MEDS ORDERED: BUPIVACAINE HCL/PF 0.25% (2.5MG/ML) 10 ML VIAL ONE (07:30)
[2022-06-08] MEDS ORDERED: ONDANSETRON 4 MG/2 ML VIAL ONE (07:59)
[2022-06-08] MEDS ORDERED: DEXAMETHASONE SOD PHOSPHATE 4 MG/1 ML VIAL ONE (07:59)
[2022-06-08] MEDS ORDERED: BUPIVACAINE HCL/PF 0.25% (2.5MG/ML) 10 ML VIAL IJ ONE (08:17)
[2022-06-08] MEDS ORDERED: NEOSTIGMINE METHYLSULFATE 0.5 MG/ML - 10 ML MDV ONE (08:36)
[2022-06-08] MEDS ORDERED: KETOROLAC TROMETHAMINE 30 MG/1 ML VIAL ONE (08:36)
[2022-06-08] MEDS ORDERED: GLYCOPYRROLATE 0.2 MG/1 ML VIAL ONE (08:36)
[2022-06-08] MEDS ORDERED: LACTATED RINGERS SOLUTION 1,000 ML IV SCH (08:45)
[2022-06-08] MEDS ORDERED: FENTANYL CITRATE/PF 50 MCG/ML VIAL ONE ×2 (09:06→09:15)
[2022-06-08 10:16] VITALS: TEMP 98.8
[2022-06-08 12:11] VITALS: BP 121/66; PULSE 76
== END 2022-06-08 12:20 | disposition home or self-care (01) ==
LOC: JASU-SURG 04:27
PROVIDERS: ATTEND Obstetrics & Gynecology
PROC: 0UT74ZZ Resection of Bilateral Fallopian Tubes, Percutaneous Endoscopic Approach (ICD-10-PCS; principal; 2022-06-08 07:30)
DX: Z30.2 Encounter for sterilization (principal)
CPT/HCPCS: 81025; 88302-TC; 94760

== ENCOUNTER 2022-09-09 17:33 | Emergency (ER) | payer OTHER ==
[2022-09-09 17:45] VITALS: BP 115/69; PULSE 83; RESP 17; TEMP 97.9; BMI 26.6
[2022-09-09] MEDS ORDERED: KETOROLAC TROMETHAMINE 30 MG/1 ML VIAL ONE (18:22)
[2022-09-09] MEDS ORDERED: KETOROLAC TROMETHAMINE 30 MG/1 ML VIAL IM ONE (18:22)
== END 2022-09-09 19:24 | disposition home or self-care (01) ==
LOC: JERFT 17:33 → JER 17:33 → JERFT 19:24
PROC: 3E0233Z Introduction of Anti-inflammatory into Muscle, Percutaneous Approach (ICD-10-PCS; principal; 2022-09-09)
DX: M65.4 Radial styloid tenosynovitis [de Quervain] (principal)
CPT/HCPCS: 73110-TC-RT-FY; 73130-TC-RT-FY; 99284-25

== ENCOUNTER 2024-03-31 11:38 | Inpatient (IN) | payer OTHER ==
[2024-03-31 11:50] VITALS: BMI 25.0
[2024-03-31] MEDS ORDERED: ONDANSETRON 4 MG/2 ML VIAL ONE ×2 (12:36→14:10)
[2024-03-31] MEDS ORDERED: ACETAMINOPHEN INJECTION 100 ML IVPB ONE (12:36)
[2024-03-31] MEDS: ACETAMINOPHEN 1000 MG/100 ML BAG IVPB ONE (12:55)
[2024-03-31] MEDS: SODIUM CHLORIDE 0.9% 500 ML INFUS.BAG IV ONE (12:56)
[2024-03-31] MEDS: ONDANSETRON 4 MG/2 ML VIAL IVPUSH ONE ×2 (12:56→14:22)
[2024-03-31 13:21] LABS: BASO % 0.1 % (0-2.0); EOS % 0.3 % (0-4.5); HEMATOCRIT 37.2 % (32.4-45.2); HEMOGLOBIN 12.3 GM/dL (10.7-15.3); LYMPH % 10.6 % (8-40); MEAN CELL VOLUME 91.1 fl (80-96); MEAN PLT VOLUME 9.4 fl (7.5-11.1); MONO % 4.7 % (3.8-10.2); NEUT % 84.3 % (42.8-82.8); PLATELET COUNT 215 10^3/uL (134-434); RBC 4.09 M/mm3 (3.60-5.2); RDW 13.7 % (11.6-15.6); WHITE BLOOD COUNT 12.1 K/mm3 (4.0-10.0)
[2024-03-31 13:39] LABS: EPI CELLS 29 /uL (0-25.1); HCG,QUALITATIVE URINE Negative; HYALINE CASTS 1 /uL (0-3.1); PH,URINE 6.5 (5.0-8.0); URINE APPEARANCE CLEAR; URINE BACTERIA 1641 /uL (0-1359); URINE BILIRUBIN NEGATIVE (NEGATIVE); URINE COLOR YELLOW; URINE GLUCOSE (UA) NEGATIVE (NEGATIVE); URINE KETONE TRACE (NEGATIVE); URINE LEUK ESTERASE NEGATIVE (NEGATIVE); URINE NITRITE NEGATIVE (NEGATIVE); URINE PROTEIN 1+ (NEGATIVE); URINE RBC 35 /uL (0-23.9); URINE WBC 11 /uL (0-25.8)
[2024-03-31 13:46] LABS: POTASSIUM 4.1 mmol/L (3.5-5.1)
[2024-03-31 13:48] LABS: BLOOD UREA NITROGEN 10.8 mg/dL (7-18)
[2024-03-31 13:49] LABS: ALBUMIN 4.3 g/dl (3.4-5.0)
[2024-03-31 13:53] LABS: BILIRUBIN,TOTAL 0.6 mg/dL (0.2-1)
[2024-03-31] MEDS ORDERED: KETOROLAC TROMETHAMINE 15 MG/ML VIAL ONE (15:57)
[2024-03-31] MEDS ORDERED: KETOROLAC TROMETHAMINE 30 MG/1 ML VIAL ONE (16:01)
[2024-03-31] MEDS ORDERED: TAMSULOSIN HCL 0.4 MG CAP ONE (16:01)
[2024-03-31] MEDS: TAMSULOSIN HCL 0.4 MG CAP PO ONE (16:08)
[2024-03-31] MEDS: KETOROLAC TROMETHAMINE 15 MG/ML VIAL IVPUSH ONE (16:09)
[2024-03-31] MEDS: KETOROLAC TROMETHAMINE 30 MG/1 ML VIAL IVPUSH ONE (16:09)
[2024-03-31] MEDS: CEFTRIAXONE 1 GM in DEXTROSE 5%-WATER - 50 ML IVPB ONE (19:05)
[2024-03-31] MEDS ORDERED: IBUPROFEN 600 MG TABLET (FP) PO PRN (19:21)
[2024-03-31] MEDS ORDERED: ACETAMINOPHEN 1000 MG/100 ML BAG IVPB PRN (21:14)
[2024-03-31] MEDS: LACTATED RINGERS SOLUTION 1,000 ML/1,000 ML INFUS.BAG IV SCH (21:33)
[2024-03-31 22:22] LABS: INR 1.12 (0.83-1.09); PROTHROMBIN TIME (PATIENT) 12.6 SEC (9.7-13.0)
[2024-04-01 08:51] LABS: BASO % 0.3 % (0-2.0); EOS % 0.9 % (0-4.5); HEMOGLOBIN 10.6 GM/dL (10.7-15.3); MCH 31.2 pg (25.7-33.7); MEAN CELL VOLUME 91.9 fl (80-96); MEAN PLT VOLUME 9.2 fl (7.5-11.1); MONO % 10.6 % (3.8-10.2); NEUT % 67.2 % (42.8-82.8); PLATELET COUNT 189 10^3/uL (134-434); RBC 3.38 M/mm3 (3.60-5.2); RDW 13.4 % (11.6-15.6); WHITE BLOOD COUNT 7.4 K/mm3 (4.0-10.0)
[2024-04-01] MEDS: TAMSULOSIN HCL 0.4 MG CAP PO SCH (08:54)
[2024-04-01 09:14] LABS: POTASSIUM 3.9 mmol/L (3.5-5.1)
[2024-04-01 09:21] LABS: BLOOD UREA NITROGEN 11.4 mg/dL (7-18); CALCIUM 8.4 mg/dL (8.5-10.1)
[2024-04-01 09:24] LABS: CREATININE 1.1 mg/dL (0.55-1.3)
[2024-04-01 09:26] LABS: BILIRUBIN,TOTAL 0.6 mg/dL (0.2-1); TOT PROT 6.1 g/dl (6.4-8.2)
[2024-04-01 09:34] LABS: ALBUMIN 3.1 g/dl (3.4-5.0)
[2024-04-01] MEDS ORDERED: LIDOCAINE HCL/PF 2% SDV 5ML VIAL ONE (15:18)
[2024-04-01] MEDS ORDERED: FENTANYL CITRATE/PF 50 MCG/ML VIAL ONE (15:19)
[2024-04-01] MEDS ORDERED: MIDAZOLAM HCL 2 MG/2 ML SINGLE DOSE VIAL ONE (15:19)
[2024-04-01] MEDS ORDERED: PROPOFOL 20 ML ONE (15:19)
[2024-04-01] MEDS ORDERED: ONDANSETRON 4 MG/2 ML VIAL IVPUSH PRN ×2 (16:08→17:36)
[2024-04-01] MEDS ORDERED: PROMETHAZINE HCL 25 MG/1 ML VIAL IVPB PRN ×2 (16:08→17:36)
[2024-04-01] MEDS ORDERED: DEXAMETHASONE SOD PHOSPHATE 4 MG/1 ML VIAL ONE (16:32)
[2024-04-01] MEDS ORDERED: ceFAZolin SODIUM 1 GM VIAL ONE (16:32)
[2024-04-01] MEDS ORDERED: KETOROLAC TROMETHAMINE 30 MG/1 ML VIAL ONE (16:34)
[2024-04-01] MEDS ORDERED: ONDANSETRON 4 MG/2 ML VIAL ONE (16:34)
[2024-04-01] MEDS: ceFAZolin SODIUM 1 GM VIAL IVPB ONE (16:35)
[2024-04-01] MEDS: IOHEXOL 180 MG/1 ML ML IJ ONE (16:40)
[2024-04-01] MEDS ORDERED: ACETAMINOPHEN INJECTION 100 ML IVPB ONE (17:23)
[2024-04-01] MEDS: ACETAMINOPHEN 1000 MG/100 ML BAG IVPB ONE ×2 (17:30→18:57)
[2024-04-01] MEDS ORDERED: ACETAMINOPHEN 1000 MG/100 ML BAG IVPB PRN (17:36)
[2024-04-01] MEDS ORDERED: CEFTRIAXONE 1 GM in DEXTROSE 5%-WATER - 50 ML IVPB SCH (18:00)
[2024-04-01] MEDS: LACTATED RINGERS SOLUTION 1,000 ML/1,000 ML INFUS.BAG IV SCH (18:58)
[2024-04-02] MEDS: ACETAMINOPHEN 1000 MG/100 ML BAG IVPB ONE ×2 (02:26→07:32)
[2024-04-02 05:37] VITALS: RESP 18
[2024-04-02] MEDS: LACTATED RINGERS SOLUTION 1,000 ML IV SCH (07:32)
[2024-04-02] MEDS: ACETAMINOPHEN 325 MG TABLET (FP) PO PRN (09:13)
[2024-04-02 14:52] VITALS: BP 106/73; PULSE 77; TEMP 98
[2024-04-02] MEDS: ACETAMINOPHEN WITH CODEINE 300MG/30MG TABLET PO ONE (15:28)
== END 2024-04-02 17:30 | disposition home or self-care (01) | DRG 661 ==
LOC: JER 11:38 → UNDOADMOB 16:08 → INTOOBSV 16:08 → JERBED 16:08 → J6S 18:51 → UNDOADMOB 19:20 → J6S 19:20 → JERBED 19:20 → JASUSAT 04-02 07:35 → J6S 04-02 12:07 → JASUSAT 04-02 12:13 → J6S 04-02 12:14
PROVIDERS: ADMIT Internal Medicine; ATTEND Internal Medicine
PROC: 0T778DZ Dilation of Left Ureter with Intraluminal Device, Via Natural or Artificial Opening Endoscopic (ICD-10-PCS; 2024-04-01)
PROC: 0TC78ZZ Extirpation of Matter from Left Ureter, Via Natural or Artificial Opening Endoscopic (ICD-10-PCS; 2024-04-01)
PROC: BT1FZZZ Fluoroscopy of Left Kidney, Ureter and Bladder (ICD-10-PCS; principal; 2024-04-01 16:00)
DX: N13.2 Hydronephrosis with renal and ureteral calculous obstruction (principal); D72.829 Elevated white blood cell count, unspecified; N17.9 Acute kidney failure, unspecified; J45.909 Unspecified asthma, uncomplicated
CPT/HCPCS: 36415; 74176-TC; 76000-TC-FY; 80053; 81003; 83605; 83690; 84702; 84703; 85025; 85610; 87086; 93005; 93010; 94760; 99285-25; 99291; C2617; J0131

== ENCOUNTER 2024-04-24 04:00 | Day surgery (SDC) | payer OTHER ==
[2024-04-13 17:52] VITALS: BMI 25.2
[2024-04-24 12:28] VITALS: RESP 16
[2024-04-24] MEDS ORDERED: FENTANYL CITRATE/PF 50 MCG/ML VIAL ONE ×2 (14:59→15:12)
[2024-04-24] MEDS ORDERED: MIDAZOLAM HCL 2 MG/2 ML SINGLE DOSE VIAL ONE (14:59)
[2024-04-24] MEDS ORDERED: ONDANSETRON 4 MG/2 ML VIAL ONE (15:57)
[2024-04-24] MEDS: ONDANSETRON 4 MG/2 ML VIAL IVPUSH ONE (16:39)
[2024-04-24 16:50] VITALS: BP 110/60; PULSE 70; TEMP 98
== END 2024-04-24 16:53 | disposition home or self-care (01) ==
LOC: JASU-SURG 04:00
PROVIDERS: ATTEND Urology
PROC: 0TF4XZZ Fragmentation in Left Kidney Pelvis, External Approach (ICD-10-PCS; principal; 2024-04-24 14:30)
DX: N20.0 Calculus of kidney (principal)
CPT/HCPCS: 81025